=== PATIENT | female | born 1995 | race Caucasian/White ===

== ENCOUNTER 2017-06-23 19:38 | Emergency (ER) | payer MEDICAID, OTHER ==
[2017-06-23] MEDS ORDERED: SKIN ADHESIVE (DERMABOND) 1 EACH TP ONE (20:20)
[2017-06-23] MEDS ORDERED: IBUPROFEN 600 MG TAB PO ONE ×2 (20:34→20:35)
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
[2017-06-23 22:46] VITALS: BP 125/83; PULSE 64; RESP 16; TEMP 97.9; O2SAT 98
== END 2017-06-23 22:46 | disposition home or self-care (01) ==
PROC: 09QKXZZ Repair Nasal Mucosa and Soft Tissue, External Approach (ICD-10-PCS; principal; 2017-06-23)
DX: S02.2XXA Fracture of nasal bones, initial encounter for closed fracture (principal); S09.90XA Unspecified injury of head, initial encounter; S49.92XA Unspecified injury of left shoulder and upper arm, initial encounter; J45.909 Unspecified asthma, uncomplicated; V28.0XXA Motorcycle driver injured in noncollision transport accident in nontraffic accident, initial encounter; Y92.410 Unspecified street and highway as the place of occurrence of the external cause; Y99.8 Other external cause status; Y93.89 Activity, other specified